=== PATIENT | male | born 1960 | race Hispanic/Latino ===

== ENCOUNTER 2018-02-01 21:57 | Inpatient (IN) | payer BC, OTHER, SELFPAY ==
[2018-02-01 22:47] LABS: ALT (SGPT) 32 U/L (8-55); AST (SGOT) 23 U/L (5-34); Albumin 4.1 g/dL (3.5-5.0); Alkaline Phosphatase 84 U/L (40-150); Anion Gap 14 mmol/L (10-20); BUN (Urea Nitrogen) 11 mg/dL (8.4-25.7); Bilirubin, Total 0.8 mg/dL (0.2-1.2); Calc. Creatinine Clearance 0 mL/min (70-130); Carbon Dioxide 22 mmol/L (22-29); Chloride 103 mmol/L (98-107); Estimated GFR-MDRD Greater than 90; Globulin 3.1 g/dL (2.4-3.5); Glucose 134 mg/dL (70-105); Protein, Total 7.2 g/dL (6.0-8.3); Sodium 135 mmol/L (136-145)
[2018-02-01 22:48] LABS: Bilirubin Negative (Negative); Blood, Urine Negative (Negative); Clarity CLEAR (Clear); Glucose, Urine (Dipstick) Negative (Negative); Leukocyte Negative (Negative); Nitrite Negative (Negative); Protein, Urine (Dipstick) Negative (Neg-Trace); Specific Gravity, Urine 1.011 (1.002-1.036); Urobilinogen 0.2 mg/dL (0.2-1.0); pH, Urine 6.5 (5.0-9.0)
[2018-02-01] MEDS ORDERED: Ketorolac Tromethamine 30 MG/ML VIAL ONE (22:52)
[2018-02-01] MEDS ORDERED: Piperacillin/Tazobactam 4.5 GM VIAL ONE (22:52)
[2018-02-01 22:57] LABS: Hemoglobin 15.4 g/dL (14.0-18.0); Mean Corpuscular HGB CONC 34.6 g/dL (32.0-36.0); Mean Corpuscular Hemoglobin 30.6 pg (27.0-31.0); Mean Corpuscular Volume 88.5 fl (80.0-94.0); Mean Platelet Volume 8.1 fL (7.4-10.4); Platelet Count 193 thou/uL (130-400); RBC Distribution Width 12.4 % (11.5-14.5); Red Blood Cell (RBC) Count 5.03 mill/uL (4.70-6.10); White Blood Cell (WBC) Count 11.7 thou/uL (4.8-10.8)
[2018-02-01 22:58] LABS: Band 8 % (5-11); Lymphocytes 7 % (21-51); MDiff Complete? YES; Monocytes 4 % (0-10); Neutrophil 81 % (42-75); PLT Morphology Comment Appears Adequate; RBC Morphology Normal
--- NOTE | 2018-02-01 23:30 | RAD ---
CHEST ONE VIEW: HISTORY: Diaphoretic patient. Chills. Weakness. COMPARISON: 09/22/2016 FINDINGS: Normal cardiac silhouette. Pulmonary vessels and hilum are normal. Elevation of the left hemidiaphr agm. Blunting of the left costophrenic angle. The right costophrenic angle is clear. Patchy inters titial pattern of the left lung base. No pneumothorax. IMPRESSION: Left lower lobe atelectasis. Superimposed infiltrate cannot be excluded. POS: [facility]
[2018-02-02] MEDS ORDERED: Azithromycin 500 MG VIAL ONE (01:14)
[2018-02-02] MEDS ORDERED: Acetaminophen 325 MG TAB ONE (01:56)
--- NOTE | 2018-02-02 02:10 | PDOC.FPRHP ---
- History of Present Illness Chief Complaint: Weakness History of Present Illness: 57 y/o PMHx of HTN and HLD, not on meds presents to the ED due to weakness, fever, and chills. He reports that over the past week he has been feeling more weak and fatigued and been urinating less frequently. He works in [employer] for his job. However, today he got much worse and developed F/C and nausea. He also reports a dry cough that started suddenly today. He has associated body aches. He reports some RABAGO since all of this started. He checked his temperature, but does not remember what it was. ED Course: The patient was given Tylenol 650mg, Azithromycin 500mg, Toradol 30mg, Zosyn 4.5g, NS 30ml/kg bolus - Allergies/Adverse Reactions Allergies Allergy/AdvReac Type Severity Reaction Status Date / Time No Known Drug Allergies Allergy Verified 02/02/18 04:00 - Home Medications Medication Instructions Recorded Confirmed Type diphenhydrAMINE [Benadryl] 50 mg PO ASDIR PRN 02/02/18 02/02/18 History - History PMHx: 1. HTN 2. HLD PSHx: R knee sx FHx: Mom - DM2, Dad - prostate cancer Social: Drinks 2-3 beers daily, last drink was 02/01. Denies tobacco or drug use. PCP: none - Review of Systems General: reports: fever/chills, fatigue Eyes: denies: eye pain, vision changes ENT: denies: nasal congestion, rhinorrhea Respiratory: reports: cough (dry), shortness of breath Cardiovascular: denies: chest pain, palpitation, edema Gastrointestinal: reports: nausea. denies: vomiting, diarrhea, constipation, abdominal pain Genitourinary: denies: incontinence, dysuria, polyuria Skin: denies: rashes, lesions Musculoskeletal: reports: pain (generalized muscle aches). denies: tenderness Neurological: reports: numbness, syncope Psychological: reports: anxiety, depression - Vital signs BP: 121/70 HR: 102 RR: 22 Tmax: 100.3 Pox: 94% on RA Wt: 80kg - Physical Exam Constitutional: NAD (diaphoretic), awake, alert and oriented, well developed HEENT: normocephalic and atraumatic, PERRLA, EOMI, conjunctiva clear, no scleral icterus, normal nasal mucosa, MMM, oropharynx clear Neck: supple, no LAD Heart: RRR, normal S1/S2, no murmurs/rubs/gallops, pulses present, no edema -Lungs: Good respiratory effort, rhonchi in left lung base, no wheezes Abdomen: soft, non-tender, bowel sounds present, no masses/distention Musculoskeletal: normal structure, normal tone Neurological: no focal deficit, CN II-XII intact, normal sensation Skin: no rash/lesions, good turgor, capillary refill <2 seconds Heme/Lymphatic: no unusual bruising or bleeding, no purpura Psychiatric: normal mood and affect, good judgment and insight, intact recent and remote memory FMR H&P: Results - Labs Result Diagrams: 02/01/18 22:09 02/01/18 22:09 Lab results: WBC 11.7 thou/uL (4.8-10.8) H 02/01/18 22:09 Hgb 15.4 g/dL (14.0-18.0) 02/01/18 22:09 Hct 44.5 % (42.0-52.0) 02/01/18 22:09 MCV 88.5 fl (80.0-94.0) 02/01/18 22:09 Plt Count 193 thou/uL (130-400) 02/01/18 22:09 Band Neuts % (Manual) 8 % (5-11) 02/01/18 22:09 Sodium 135 mmol/L (136-145) L 02/01/18 22:09 Potassium 4.0 mmol/L (3.5-5.1) 02/01/18 22:09 Chloride 103 mmol/L (98-107) 02/01/18 22:09 Carbon Dioxide 22 mmol/L (22-29) 02/01/18 22:09 BUN 11 mg/dL (8.4-25.7) 02/01/18 22:09 Creatinine 0.82 mg/dL (0.6-1.3) 02/01/18 22:09 Glucose 134 mg/dL (70-105) H 02/01/18 22:09 Lactic Acid 3.1 mmol/L (0.5-2.2) H 02/01/18 22:09 Calcium 9.0 mg/dL (7.8-10.44) 02/01/18 22:09 Total Bilirubin 0.8 mg/dL (0.2-1.2) 02/01/18 22:09 AST 23 U/L (5-34) 02/01/18 22:09 ALT 32 U/L (8-55) 02/01/18 22:09 Alkaline Phosphatase 84 U/L (40-150) 02/01/18 22:09 Serum Total Protein 7.2 g/dL (6.0-8.3) 02/01/18 22:09 Albumin 4.1 g/dL (3.5-5.0) 02/01/18 22:09 Urine Ketones Negative mg/dL (Negative) 02/01/18 22:43 Urine Blood Negative (Negative) 02/01/18 22:43 Urine Nitrite Negative (Negative) 02/01/18 22:43 Ur Leukocyte Esterase Negative (Negative) 02/01/18 22:43 - Radiology Interpretation Chest x-ray Status: image reviewed by me, report reviewed by me Additional comment: LLL atelectasis, infiltrate cannot be excluded FMR H&P: A/P - Problem List (1) Sepsis Current Visit: Yes Status: Acute Code(s): A41.9 - SEPSIS, UNSPECIFIED ORGANISM Qualifiers: Sepsis type: sepsis due to unspecified organism Qualified Code(s): A41.9 - Sepsis, unspecified organism (2) CAP (community acquired pneumonia) Current Visit: Yes Status: Acute Code(s): J18.9 - PNEUMONIA, UNSPECIFIED ORGANISM Qualifiers: Laterality: left Lung location: lower lobe of lung Qualified Code(s): J18.1 - Lobar pneumonia, unspecified organism (3) Lactic acidosis Current Visit: Yes Status: Acute Code(s): E87.2 - ACIDOSIS (4) HLD (hyperlipidemia) Current Visit: Yes Status: Acute Code(s): E78.5 - HYPERLIPIDEMIA, UNSPECIFIED Qualifiers: Hyperlipidemia type: unspecified Qualified Code(s): E78.5 - Hyperlipidemia , unspecified (5) HTN (hypertension) Current Visit: Yes Status: Acute Code(s): I10 - ESSENTIAL (PRIMARY) HYPERTENSION Qualifiers: Hypertension type: essential hypertension Qualified Code(s): I10 - Essential (primary) hypertension - Plan Sepsis 2/2 CAP Patient initially tachycardic, tachypneic, with CXR concerning for possible LLL infiltrate. The patient also has Lactic acid of 3.1. WBC count was 11.7 with 8% bands. He is s/p 30mL/kg bolus in the ED along with Zosyn and Azithromycin. -Admit to medical -Rocephin, Azithromycin -NS @ 120 -Trend Lactic acid -Blood cultures Community Acquired Pneumonia -Rocephin, Azithromycin -NS @ 120 -Procalcitonin -Urine legionella and strep pneumo antigens Lactic Acidosis Initial lactate was 3.1 -Trend and monitor -NS @ 120, s/p fluid bolus in ED HTN Pt has diagnosis of HTN, but is not currently on medication -Will monitor BP and start med if needed HLD Pt has dx of HLD, but not currently on medication. -Will check FLP and start med if needed EtOH abuse Pt with h/o drinking 2-3 beers/day. Last drink was yesterday. Denies having withdrawal symptoms if he doesn't drink anything. -ASE protocol, monitor for signs of withdrawal VTE ppx: Lovenox Code Status: Full Disposition/LOS: Admit to medical, length of stay likely 2 days FMR H&P: Upper Level - Pertinent history 57 yo M with PMH significant for HLD presents with 1-2 days of worsening fatigue. 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 Notes that his urine output has decreased, and that he has not had to wake up to urinate the past couple of nights. No fevers at home, no known sick contacts, has had some mildly productive cough recently. No CP or SOB. - Pertinent findings PE: T: P: BP: RR: % Gen: [place] male in NAD HEENT: PERRL, EOMI, MMM, no lymphadenopathy or thyromegaly CV: RRR no murmurs, distal pulses intact Pulm: mild rhonchi in LLL, right field clear to ascultation Abd: soft, NT/ND, BS present, no masses or distention Ext: no cyanosis or edema MSK: ROMAN well, no joint or muscle pain or swelling Neuro: CN 2-12 intact, normal sensation Skin: no rashes or lesions Psych: A&O x3, appropriate in conversation - Plan Date/Time: 02/02/18 0209 57 yo M here with fatigue. 1) Sepsis 2/2 CAP: Admit to medical, continue rocephin and azithromycin for coverage. Blood cultures pending at this time. Afebrile, VSS. Will continue to fluid resuscitate. Trend lactate and WBC counts until normal. Check procal. 2) HLD: Check FLP I, [Kimo Carroll], have evaluated this patient and agree with findings/plan as outlined by education intern resident. Pertinent changes/additions are listed here. Attending Addendum - Attending Addendum Date/Time: 02/02/18 1120 I personally evaluated the patient and discussed the management with Dr. Rosas I agree with the History, Examination, Assessment and Plan documented above with any addition or exceptions noted below. The patient presents with a history of fever, chills, body aches and generalized weakness. He was noted to have elevate lactic acid. This morning he complains of headache and congestion. He is on rocephin and azithromycin for sepsis 2/2 CAP. Will repeat a chest xr to see if there is a definitive pneumonia. Lactic acid has trended down. Will check respiratory viral panel. Pt is also mildly hypoxic with O2 sat at 89% during our visit.
[2018-02-02] MEDS ORDERED: Ondansetron HCl/PF 4 MG/2 ML Vial IVP PRN (03:36)
[2018-02-02] MEDS ORDERED: Ondansetron ODT 4 MG TAB PO PRN (03:36)
[2018-02-02] MEDS: Sodium Chloride 0.9% 1,000 ML IV SCH ×3 (03:42→20:15)
[2018-02-02 03:56] VITALS: BMI 28.2
[2018-02-02] MEDS ORDERED: Ibuprofen 800 MG TAB PO SCH (04:15)
[2018-02-02] MEDS: cefTRIAXone\\ROCEPHIN 2 GM in Sodium Chloride 0.9% 100 ML IVPB SCH (05:34)
[2018-02-02 05:43] LABS: Legionella Urinary Ag Negative (Negative); Strep pneumo Urine Ag NEGATIVE (NEGATIVE)
[2018-02-02] MEDS: Enoxaparin Sodium 40 MG/0.4 ML SYRINGE SC SCH (08:12)
[2018-02-02] MEDS: Acetaminophen 325 MG TAB PO PRN ×2 (08:13→19:07)
--- NOTE | 2018-02-02 11:32 | RAD ---
PORTABLE CHEST: HISTORY: Followup of left lower lobe infiltrate. COMPARISON: Prior day's study. FINDINGS: Heart size and mediastinum are within normal limits. The parenchymal changes in the left base appear improved as compared to that prior examination. IMPRESSION: Resolution of the left lower lobe parenchymal change. No definite infiltrate seen on this portable f ilm. POS: [facility]
[2018-02-02] MEDS: guaiFENesin ER 600 MG TAB PO SCH (20:14)
[2018-02-02] MEDS ORDERED: Azithromycin 250 MG TAB PO SCH (21:00)
[2018-02-03 05:03] LABS: #Eosinphils 0.3 thou/uL (0.0-0.7); #Lymphocytes 1.6 thou/uL (1.20-3.40); #Monocytes 0.5 thou/uL (0.11-0.59); #Neutrophils 4.6 thou/uL (1.40-6.50); %Basophils 0.2 % (0.0-1.0); %Eosinophils 3.7 % (0.0-10.0); %Lymphocytes 23.2 % (21.0-51.0); %Monocytes 7.6 % (0.0-10.0); %Neutrophils 65.3 % (42.0-75.0); Hemoglobin 14.5 g/dL (14.0-18.0); Mean Corpuscular HGB CONC 34.6 g/dL (32.0-36.0); Mean Corpuscular Hemoglobin 30.9 pg (27.0-31.0); Mean Corpuscular Volume 89.2 fl (80.0-94.0); Mean Platelet Volume 8.2 fL (7.4-10.4); Platelet Count 171 thou/uL (130-400); RBC Distribution Width 12.3 % (11.5-14.5)
[2018-02-03] MEDS: cefTRIAXone\\ROCEPHIN 2 GM in Sodium Chloride 0.9% 100 ML IVPB SCH (05:12)
[2018-02-03] MEDS: Sodium Chloride 0.9% 1,000 ML IV SCH (05:13)
[2018-02-03 05:29] LABS: Anion Gap 12 mmol/L (10-20); BUN (Urea Nitrogen) 7 mg/dL (8.4-25.7); Calc. Creatinine Clearance 134 mL/min (70-130); Calcium 8.8 mg/dL (7.8-10.44); Carbon Dioxide 22 mmol/L (22-29); Chloride 110 mmol/L (98-107); Cholesterol 189 mg/dl (< 200 Desired); Estimated GFR-MDRD Greater than 90; Glucose 95 mg/dL (70-105); HDL Cholesterol 47 mg/dL (>60 Neg Risk); LDL Cholesterol, Calculated 121 mg/dL; Potassium 4.1 mmol/L (3.5-5.1); Sodium 140 mmol/L (136-145); Triglycerides 103 mg/dL (Less than 150)
[2018-02-03] MEDS: guaiFENesin ER 600 MG TAB PO SCH (08:52)
[2018-02-03] MEDS: Enoxaparin Sodium 40 MG/0.4 ML SYRINGE SC SCH (08:53)
--- NOTE | 2018-02-03 09:21 | PDOC.FM ---
- Subjective Subjective: Patient is reporting much improvement in breathing and congestion today. He ate his breakfast well. He has been up and walking. He reports he is urinating at least 1x per hour now. His cough and fever have resolved. NAEO. - Objective MAR Reviewed: Yes Vital Signs & Weight: Vital Signs (12 hours) Temp Pulse Resp BP Pulse Ox 02/03/18 07:32 98.3 F 83 18 135/78 95 Weight Weight 79.379 kg I&O: 02/02/18 02/03/18 02/04/18 06:59 06:59 06:59 Intake Total 529 2160 Balance 529 2160 Result Diagrams: 02/03/18 04:23 02/03/18 04:23 <Tiffanie Paris - Last Filed: 02/03/18 12:02> - Objective Vital Signs & Weight: Vital Signs (12 hours) Temp Pulse Resp BP BP Pulse Ox 02/03/18 12:00 159/87 H 02/03/18 11:22 98.4 F 82 20 159/87 H 97 Weight Weight 79.379 kg I&O: 02/02/18 02/03/18 02/04/18 06:59 06:59 06:59 Intake Total 529 2160 480 Balance 529 2160 480 Result Diagrams: 02/03/18 04:23 02/03/18 04:23 <Carol Rogers - Last Filed: 02/03/18 20:44> Phys Exam - Physical Examination Constitutional: NAD HEENT: PERRLA, moist MMs, sclera anicteric erythema of oropharynx, no tonsilar exudates, +cobblestoning No ttp of sinuses Respiratory: no wheezing, no rales, clear to auscultation bilateral Cardiovascular: RRR, no significant murmur Gastrointestinal: soft, non-tender Musculoskeletal: pulses present Neurological: moves all 4 limbs Psychiatric: normal affect, A&O x 3 <Tiffanie Paris - Last Filed: 02/03/18 12:02> Dx/Plan (1) Dehydration, moderate Code(s): E86.0 - DEHYDRATION Status: Resolved (2) HLD (hyperlipidemia) Code(s): E78.5 - HYPERLIPIDEMIA, UNSPECIFIED Status: Chronic QualifierTitle: Hyperlipidemia type: unspecified Qualified Code(s): E78.5 - Hyperlipidemia, unspecified (3) HTN (hypertension) Code(s): I10 - ESSENTIAL (PRIMARY) HYPERTENSION Status: Chronic QualifierTitle: Hypertension type: essential hypertension Qualified Code( s): I10 - Essential (primary) hypertension (4) Lactic acidosis Code(s): E87.2 - ACIDOSIS Status: Resolved (5) Sepsis Code(s): A41.9 - SEPSIS, UNSPECIFIED ORGANISM Status: Resolved QualifierTitle: Sepsis type: sepsis due to unspecified organism Qualified Code(s): A41.9 - Sepsis, unspecified organism (6) CAP (community acquired pneumonia) Code(s): J18.9 - PNEUMONIA, UNSPECIFIED ORGANISM Status: Ruled-out QualifierTitle: Laterality: left Lung location: lower lobe of lung Qualified Code(s): J18.1 - Lobar pneumonia, unspecified organism - Plan Plan: Possible CAP: - not fully convinced as infiltrate dissapeared with IVF and sx resolved overnight - patient has received Rocephin and Azithromycin [id number] - respiratory viral panel negative - procalcitonin wnl suggesting viral etiology - will d/c home today without abx and close f/u Moderate Dehydration: - likely a large contributor to all his symptoms, LA corrected with IVF, tachycardia resolved, infiltrate disappeared. - s/p NS at 120 for 24hrs, UOP much improved, d/c IVF today - CK wnl HTN - not currently on meds - BP slightly elevated this am but overnight wnl, f/u outpatient for possible need for medication vs treatment with diet/exercise. HLD - not on meds - FLP wnl - f/u outpatient Sepsis, resolved - see above Lactic Acidosis, resolved - see above <Tiffanie Paris - Last Filed: 02/03/18 12:02> (1) Sepsis Code(s): A41.9 - SEPSIS, UNSPECIFIED ORGANISM Status: Resolved Qualifiers: Sepsis type: sepsis due to unspecified organism Qualified Code(s): A41.9 - Sepsis, unspecified organism (2) CAP (community acquired pneumonia) Code(s): J18.9 - PNEUMONIA, UNSPECIFIED ORGANISM Status: Ruled-out Qualifiers: Laterality: left Lung location: lower lobe of lung Qualified Code(s): J18.1 - Lobar pneumonia, unspecified organism (3) Lactic acidosis Code(s): E87.2 - ACIDOSIS Status: Resolved (4) HLD (hyperlipidemia) Code(s): E78.5 - HYPERLIPIDEMIA, UNSPECIFIED Status: Chronic Qualifiers: Hyperlipidemia type: unspecified Qualified Code(s): E78.5 - Hyperlipidemia , unspecified (5) HTN (hypertension) Code(s): I10 - ESSENTIAL (PRIMARY) HYPERTENSION Status: Chronic Qualifiers: Hypertension type: essential hypertension Qualified Code(s): I10 - Essential (primary) hypertension <Carol Rogers - Last Filed: 02/03/18 20:44> Attending Addendum - Attending Addendum Date/Time: 02/03/182042 I personally evaluated the patient and discussed the management with Dr. Paris. I agree with the History, Examination, Assessment and Plan documented above with any addition or exceptions noted below. The patient's breathing is back to baseline. WBC count normal. Repeat CXR negative for pneumonia. Viral respiratory panel negative. Pt's symptoms on admission likely 2/2 dehydration. There are no signs of infection and patient will not be sent home with antibiotics. <Carol Rogers - Last Filed: 02/03/18 20:44>
[2018-02-03 11:23] VITALS: BP 159/87; TEMP 98.4
== END 2018-02-03 13:22 | disposition home or self-care (01) | DRG 871 ==
LOC: ERS 21:57 → T4-B 02-02 02:35
PROVIDERS: ADMIT Student in an Organized Health Care Education/Training Program; ATTEND Student in an Organized Health Care Education/Training Program
DX: A41.9 Sepsis, unspecified organism (principal); J18.9 Pneumonia, unspecified organism; E87.2 Acidosis; E86.0 Dehydration; E78.5 Hyperlipidemia, unspecified; I10 Essential (primary) hypertension
CPT/HCPCS: 36415; 71045; 80048; 80053; 80061; 81003; 82550; 83605; 84145; 85025; 87040; 87086; 87633; 87804; 87899; 93005; 94760; 96361; 96365; 96367; 96374; A4216; J0456; J0696; J1650; J1885; J2543; J7050

== ENCOUNTER 2018-06-26 12:54 | Emergency (ER) | payer OTHER ==
--- NOTE | 2018-06-26 13:26 | RAD ---
RIGHT ELBOW RADIOGRAPHS 4 VIEWS: Date: 06/26/18 PROVIDED CLINICAL HISTORY: Right arm pain status post injury. FINDINGS: There is no evidence for fracture or other acute osseous abnormality. If there is persistent clinical concern, conservative management and follow-up imaging are advised. IMPRESSION: As above. POS: [facility]
--- NOTE | 2018-06-26 13:27 | RAD ---
RIGHT WRIST RADIOGRAPHS 3 VIEWS: Date: 06/26/18 PROVIDED CLINICAL HISTORY: Pain status post injury. FINDINGS: Foci of linear radiolucency are seen involving the scaphoid waist and distal scaphoid pole suggesting nondisplaced fracture. No additional fracture is evident. Alignment appears anatomic. Joint spaces a ppear preserved. IMPRESSION: Possible nondisplaced fracture involving distal scaphoid. POS: [facility]
[2018-06-26] MEDS ORDERED: HYDROcodone/Acetaminophen 10/325 mg Tablet ONE (13:39)
== END 2018-06-26 14:31 | disposition home or self-care (01) ==
LOC: ERS 12:54
DX: S50.01XA Contusion of right elbow, initial encounter (principal); S60.211A Contusion of right wrist, initial encounter; E78.5 Hyperlipidemia, unspecified; I10 Essential (primary) hypertension; Z87.891 Personal history of nicotine dependence; W18.30XA Fall on same level, unspecified, initial encounter
CPT/HCPCS: 29125

== ENCOUNTER 2018-07-26 07:44 | Outpatient (CLI) | payer OTHER ==
--- NOTE | 2018-07-26 11:41 | MRI ---
MRI OF RIGHT ELBOW PERFORMED WITHOUT CONTRAST ENHANCEMENT: History: Patient fell and has right elbow pain. FINDINGS: The ulnar collateral ligament shows a lower grade undersurface tear at the level of the supine tuberc al. The lateral collateral ligament is intact. There are tendinopathy changes of the common extensor tendon origin and what could represent a low gr sirena partial tear. The common flexor tendon origin appears unremarkable. Triceps tendon is normal in appearance. There is what appears to be an acute on chronic tear of the biceps tendon. There is ossification at t he level of the expected insertion of the biceps tendon on the radial tuberosity. There is edema valverde ge in fluid. The stump of the tendon is retracted by approximately 2.5 cm. The visualized portion of the biceps tendon appears very atrophic. I suspect that this represents a chronic biceps tendon tear and that there has been a tear of the residual scar or what may have been a residual remnant of the t endon that is still attached to the radial tuberosity. I suspect that the retracted portion has been chronically retracted. The lacertus fibrosis appears intact. IMPRESSION: 1. Findings that suggest an acute on chronic tear of the biceps tendon. There is ossification at the radial tuberosity at the expected insertion of the biceps tendon. The tendon is retracted by approxim ately 2.3 cm. I suspicious that this is a chronically retracted tendon. There are edema changes assoc iated with the distal end of the tendon. There is some minimal linear density which extends to the ra dial tuberosity which could represent a tiny remnant of the tendon or more likely scar tissue from a chronically torn tendon. The visualized portion of the biceps muscle appears to be moderately atrophi c. The lacertus fibrosis appears intact. 2. Low grade undersurface tear of the ulnar collateral ligament at the level of the subline tubercal. 3. Tendinopathy changes of the common extensor tendon origin with a low grade partial tear. POS: [facility]
== END 2018-07-26 07:45 | disposition home or self-care (01) ==
LOC: TBSIIMAG 07:44
PROVIDERS: ATTEND Orthopaedic Surgery
DX: M25.521 Pain in right elbow (principal); S53.441A Ulnar collateral ligament sprain of right elbow, initial encounter; S56.511A Strain of other extensor muscle, fascia and tendon at forearm level, right arm, initial encounter; R93.7 Abnormal findings on diagnostic imaging of other parts of musculoskeletal system

== ENCOUNTER 2018-08-06 09:43 | Outpatient (CLI) | payer OTHER ==
[2018-08-06 11:15] LABS: Hemoglobin 15.7 g/dL (14.0-18.0); Mean Corpuscular HGB CONC 34.5 g/dL (32.0-36.0); Mean Corpuscular Hemoglobin 30.4 pg (27.0-31.0); Platelet Count 234 thou/uL (130-400); RBC Distribution Width 12.3 % (11.5-14.5); Red Blood Cell (RBC) Count 5.15 mill/uL (4.70-6.10); White Blood Cell (WBC) Count 8.9 thou/uL (4.8-10.8)
--- NOTE | 2018-08-06 19:05 | EKG ---
Test Reason : Blood Pressure : / mmHG Vent. Rate : 074 BPM Atrial Rate : 074 BPM P-R Int : 150 ms QRS Dur : 090 ms QT Int : 372 ms P-R-T Axes : 050 028 038 degrees QTc Int : 412 ms Normal sinus rhythm Inc. RBBB Can not rule out Anterior infarct , age undetermined Abnormal ECG When compared with ECG of 06-AUG-2018 10:13, (Unconfirmed) Right bundle branch block is no longer Present Possible Anterior infarct is now Present Confirmed by Lul JACOBS ([id number]) on 08/06/2018 7:05:14 PM Referred By: ELZA Confirmed By:Lul JACOBS
== END 2018-08-06 09:44 | disposition home or self-care (01) ==
LOC: LABBT 09:43
PROVIDERS: ATTEND Orthopaedic Surgery
DX: Z01.818 Encounter for other preprocedural examination (principal)
CPT/HCPCS: 85027; 93005; 93010

== ENCOUNTER 2018-08-10 06:55 | Day surgery (SDC) | payer OTHER ==
[2018-08-06 09:56] VITALS: BMI 30.7
[2018-08-10] MEDS ORDERED: Fentanyl 100 MCG/2 ML VIAL ONE (07:29)
[2018-08-10] MEDS ORDERED: Midazolam HCl 2 mg/2 ml Vial ONE (07:29)
[2018-08-10] MEDS ORDERED: CEFAZOLIN 2 GM/50 ML BAG ONE (10:07)
[2018-08-10] MEDS ORDERED: Zolpidem Tartrate 5 MG TAB PO PRN (10:58)
[2018-08-10] MEDS ORDERED: Ropivacaine 0.2% 550 ML 550 ML NERVE BLCK SCH (10:58)
[2018-08-10] MEDS ORDERED: traMADol HCl 50 MG TAB PO PRN ×2 (10:58)
[2018-08-10] MEDS ORDERED: Ondansetron PF 4 MG/2 ML Vial IVP PRN (10:58)
[2018-08-10] MEDS ORDERED: HYDROcodone/Acetaminophen 10/325 mg Tablet PO PRN ×2 (10:58)
[2018-08-10] MEDS ORDERED: Promethazine HCl 25 MG/ML VIAL IM PRN (10:58)
[2018-08-10] MEDS ORDERED: Fentanyl 100 MCG/2 ML VIAL IV PRN (10:59)
[2018-08-10] MEDS ORDERED: Ketorolac Tromethamine 30 MG/ML VIAL IVP SCH (12:00)
--- NOTE | 2018-08-10 12:21 | RAD ---
INTRAOPERATIVE FLUOROSCOPY: Comparison: None. Exposure: 15.6 seconds; 0.60 mGy*cm^2 History: Biceps tendon repair. FINDINGS: Single fluoroscopic view demonstrates a metallic slightly rectangular density projecting over the pro ximal radius. IMPRESSION: Intraoperative fluoroscopy as above. POS: [facility]
[2018-08-10] MEDS ORDERED: Ondansetron PF 4 MG/2 ML Vial ONE (12:32)
[2018-08-10] MEDS ORDERED: Promethazine HCl 25 MG/ML VIAL ONE (12:39)
--- NOTE | 2018-08-10 20:44 | OP ---
DATE OF PROCEDURE: 08/10/2018 PREOPERATIVE DIAGNOSIS: Right distal biceps rupture. POSTOPERATIVE DIAGNOSIS: Right distal biceps rupture. PROCEDURES PERFORMED: Open right distal biceps reconstruction/repair with Arthrex distal biceps repair system. WHEEL AND CASTER REPAIRER: Alexandr Cartwright PA-C ANESTHESIA: This patient received an LMA with supervised care. ESTIMATED BLOOD LOSS: 25 mL. TOURNIQUET TIME: 56 minutes at 250 mmHg. ANTIBIOTICS: 2 g Ancef. The patient received a TightRope distal biceps Arthrex repair kit. COMPLICATIONS: None. HISTORY OF PRESENT ILLNESS: Mr. Genaro Jensen is a 57-year-old male. He is right-hand dominant. He felt a pop in his arm on the 26. The patient had MRI evidence of a tear of his right distal biceps. I discussed with the patient the risks and benefits of an open repair to include pain, scar, bleeding, infection; damage to vital structures, nerves, arteries, tendons; decreased range of motion or strength, nonunion, malunion of fracture, heterotopic ossification. He understands these risks and benefits and would like to proceed. DESCRIPTION OF PROCEDURE: Time-out was performed designating the patient's right upper extremity as the operative site, based on site, consent, and markings. After time-out, the patient's right upper extremity was prepped and draped in sterile fashion. Tourniquet was left up for 56 minutes. We dissected down, came down through the skin, came down onto the patient's biceps. We dissected under the leash of yue vessels. We did not take any of the neurovascular structures. We came down, found the sheath, opened up the biceps, tracked it down to the bicipital tuberosity to make a second window in between the patient's pronator teres and the brachioradialis. We came down onto where the stump remnant was and used cautery on bone, exposed our remnant stump. We then moved back to our tendon and used our fiber loop to pass running stitches to the distal end. We sized it to a 7. We then drilled hole for our 7 mm drill as we placed our guide pin under fluoroscopic guidance. We had sized graft to 7 mm. After completion of this, we then drilled and opened our cortex, passed our TightRope, pulled it in a position, centered it down. We then moved after positioning our TightRope in position. We then stitched down, passed our suture back up to our tendon, sewed it down, cut, stitched, washed. The patient was able to extend about 20 degrees. It was tied at about 20 to 30 degrees. The patient was then placed in a soft bulky dressing. The patient will follow up with me in about 10 to 14 days and began elbow range of motion as tolerated in a sling. The patient will be given hydrocodone for pain relief. Job ID: [id number] [facility]
== END 2018-08-10 16:20 | disposition home or self-care (01) ==
LOC: SDC 06:55
PROVIDERS: ATTEND Orthopaedic Surgery
PROC: 0KQ70ZZ Repair Right Upper Arm Muscle, Open Approach (ICD-10-PCS; principal; 2018-08-10)
DX: S46.211A Strain of muscle, fascia and tendon of other parts of biceps, right arm, initial encounter (principal); W19.XXXA Unspecified fall, initial encounter
CPT/HCPCS: 76000; 96374; A4306; C1713; J2250; J2405; J2550; J2795; J3010

== ENCOUNTER 2018-12-15 14:56 | Observation (INO) | payer OTHER, SELFPAY ==
[2018-12-15 16:31] LABS: Troponin I 0.016 ng/mL (< 0.028)
--- NOTE | 2018-12-15 16:53 | PDOC.EVN ---
Event Note - Event Note Event Note: Seen and and examined. 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 He improved on steroids from PCP but has since worsened since finishing. He has chest pain only with respiration and his shortness of breath is worse with exertion and better with rest. No nausea/diaphoresis. He admits that he is quite anxious and his "whole body palomares." He has some orthopnea. He has no pain currently. He has been coughing extensively but no syncope or posttussive emesis. On exam he is in NAD, is tachycardic with a 3/6 ILENE that radiates through most of the precordium. He is mildly tachypneic with bibasilar rales and expiratory wheezes. No JVD or edema. Labs and imaging reviewed. ECG with sinus tach, ~RBBB without MYKEL/D or sig TW changes. No IL depression. Acute resp failure 2/2 presumed COPD vs asthma -steroids, nebs, azithro in light of recent sputum production and color change New murmur -TTE Chest pain -I strongly suspect 2/2 above. If he does not rapidly improve, would consider stress echo in light of relative c/i of other modalities (active lung dz and knee arthritis with ~RBBB on ECG)
[2018-12-15] MEDS ORDERED: Acetaminophen 325 MG TAB PO PRN (17:27)
[2018-12-15] MEDS ORDERED: Nitroglycerin 0.4 MG TAB (25 Tab Bottle) PO PRN (17:27)
[2018-12-15] MEDS ORDERED: Ondansetron PF 4 MG/2 ML Vial IVP PRN (17:27)
[2018-12-15 17:43] VITALS: BMI 33.8
--- NOTE | 2018-12-15 17:46 | PDOC.FPRHP ---
- History of Present Illness Chief Complaint: dyspnea History of Present Illness: Kaiden Jensen is a 58 year old M with PMH of HLD and Arthritis who presents to the ED with a 3 week history of dyspnea, cough, and wheezing. States that his PCP, Dr. Rogers, gave him antibiotics and steroids 2 weeks ago, states that he initially got better but since finishing the course, he has had progressively worsening symptoms. Endorses orthopnea and RABAGO. Denies fever, chills, n/v, abdominal pain. States that he has some chest pain when he coughs. States that he has been exposed to chemicals over the last 30 years because of his job but he has no known his of lung issues. In the ED, he was given steroids and nebs. - Allergies/Adverse Reactions Allergies Allergy/AdvReac Type Severity Reaction Status Date / Time No Known Drug Allergies Allergy Verified 12/15/18 17:48 - Home Medications Medication Instructions Recorded Confirmed Type Atorvastatin Calcium [Lipitor] 20 mg PO HS 08/06/18 12/15/18 History Naproxen 500 mg PO BID PRN 08/06/18 12/15/18 History Tamsulosin HCl [Flomax] 0.4 mg PO HS 08/06/18 12/15/18 History hydrOXYzine HCl [Hydroxyzine HCl] 25 mg PO PRN PRN 08/06/18 12/15/18 History Benzonatate [Tessalon] 100 mg PO TID PRN 12/15/18 12/15/18 History Cyclobenzaprine [Flexeril] 10 mg PO TID PRN 12/15/18 12/15/18 History Gabapentin 300 mg PO TID 12/15/18 12/15/18 History Nortriptyline HCl [Pamelor] 25 mg PO DAILY 12/15/18 12/15/18 History - History PMHx: HDL, Athritis PSHx: right elbow surgery, right knee surgery FHx: noncontributory Social: states that he hasn't had any alcohol over the last 5 months, prior to that he was having 2 beers a day, denies drug use or smoking. - Review of Systems General: denies: fever/chills, weight/appetite/sleep changes, night sweats, fatigue Eyes: denies: eye pain, vision changes ENT: denies: nasal congestion, rhinorrhea Respiratory: reports: cough, shortness of breath, exercise intolerance. denies : congestion Cardiovascular: reports: chest pain, edema, orthopnea. denies: palpitation, paroxysmal nocturnal dyspnea Gastrointestinal: denies: nausea, vomiting, diarrhea, constipation, abdominal pain Genitourinary: denies: incontinence, dysuria, discharge Skin: denies: rashes, lesions Musculoskeletal: reports: pain, arthritis/arthralgias. denies: tenderness, stiffness Neurological: denies: numbness, syncope, seizure Psychological: denies: anxiety, depression - Vital signs BP: 151/71 HR: 108 RR: 20 Tmax: 98.2 Pox: 96% on RA Wt: 88kg - Physical Exam Constitutional: NAD, awake, alert and oriented, well developed HEENT: normocephalic and atraumatic, PERRLA, EOMI, conjunctiva clear Neck: supple, FROM, no LAD, no JVD Chest: no-tender to palpation, no lesions Heart: normal S1/S2 -Heart: tachycardic, 3/6 systolic murmur heart best left 5th intercostal space, midclavicular Lungs: CTAB, no respiratory distress, good air movement, no rales/rhonchi -Lungs: expiratory wheezes heard b/l Abdomen: soft, non-tender, bowel sounds present, no masses/distention Musculoskeletal: normal structure, normal tone, ROM grossly normal Neurological: no focal deficit, CN II-XII intact Skin: no rash/lesions, good turgor, capillary refill <2 seconds Heme/Lymphatic: no unusual bruising or bleeding, no purpura, no petechia Psychiatric: normal mood and affect, good judgment and insight, intact recent and remote memory FMR H&P: Results - Labs Result Diagrams: 12/16/18 04:34 12/16/18 04:34 - EKG Interpretation EKG: Sinus Tachycardia, poss left atrial enlargement - Radiology Interpretation Chest x-ray Status: image reviewed by me, report reviewed by me Additional comment: borderline pulm vascular congestion CT scan - chest Status: image reviewed by me, report reviewed by me Additional comment: negative for VTE FMR H&P: A/P - Problem List (1) COPD exacerbation Current Visit: Yes Status: Acute Code(s): J44.1 - CHRONIC OBSTRUCTIVE PULMONARY DISEASE W (ACUTE) EXACERBATION (2) Arthritis Current Visit: Yes Status: Chronic Code(s): M19.90 - UNSPECIFIED OSTEOARTHRITIS, UNSPECIFIED SITE (3) HLD (hyperlipidemia) Current Visit: No Status: Chronic Code(s): E78.5 - HYPERLIPIDEMIA, UNSPECIFIED Qualifiers: Hyperlipidemia type: unspecified Qualified Code(s): E78.5 - Hyperlipidemia , unspecified (4) HTN (hypertension) Current Visit: No Status: Chronic Code(s): I10 - ESSENTIAL (PRIMARY) HYPERTENSION Qualifiers: Hypertension type: essential hypertension Qualified Code(s): I10 - Essential (primary) hypertension - Plan 1) Presumed COPD Exacerbation - no known history of pulmonary disease - Reactive airway disease vs COPD vs CHF - CXR showed pulmonary vascular congestion, BNP < 10 - Wheezes on exam, hx of improvement with steroids - Continue steroids, duonebs. Start azithromycin - Check Echo for new murmur - Trend trops - Consider stress test if no improvement in symptoms - observation/tele 2) New systolic murmur - checking Echo 3) HTN - Home meds 4) HLD - Home meds 5) Arthritis - tylenol CODE STATUS: FULL CODE Dispo: Anticipate hospital stay < 2 midnights. FMR H&P: Upper Level - Plan Date/Time: 12/15/18 5112 I, [], have evaluated this patient and agree with findings/plan as outlined by internet architect resident. Pertinent changes/additions are listed here. Addendum - Attending - Attending Attestation Date/Time: 12/16/18 1013 I personally evaluated the patient and discussed the management with Dr. Pedersen. I agree with and repeated the History, Examination, Assessment and Plan documented above with any addition or exceptions noted below.
[2018-12-15] MEDS ORDERED: Azithromycin 500 MG in Sodium Chloride 0.9% 250 ML 250 ML IVPB SCH (18:00)
[2018-12-15] MEDS ORDERED: hydrOXYzine 25 MG TAB PO PRN (18:01)
[2018-12-15] MEDS: methylPREDNISolone Sod Succ 40 MG VIAL IVP SCH ×2 (18:26→23:02)
[2018-12-15 19:25] LABS: Troponin I 0.016 ng/mL (< 0.028)
[2018-12-15] MEDS: Gabapentin 300 MG CAP PO SCH (20:55)
[2018-12-15] MEDS ORDERED: Atorvastatin Calcium 20 MG TAB PO SCH (21:00)
[2018-12-15] MEDS ORDERED: Cyclobenzaprine 10 MG TAB PO PRN (23:47)
[2018-12-16 05:07] LABS: #Lymphocytes 0.9 thou/uL (1.20-3.40); #Monocytes 0.2 thou/uL (0.11-0.59); #Neutrophils 9.2 thou/uL (1.40-6.50); %Basophils 0.2 % (0.0-1.0); %Eosinophils 0.3 % (0.0-10.0); %Monocytes 1.8 % (0.0-10.0); %Neutrophils 88.7 % (42.0-75.0); Hemoglobin 14.9 g/dL (14.0-18.0); Mean Corpuscular HGB CONC 33.8 g/dL (32.0-36.0); Mean Corpuscular Hemoglobin 30.1 pg (27.0-31.0); Mean Corpuscular Volume 89.1 fL (78.0-98.0); Mean Platelet Volume 8.5 fL (7.4-10.4); Platelet Count 203 thou/uL (130-400); RBC Distribution Width 13.1 % (11.5-14.5); Red Blood Cell (RBC) Count 4.95 mill/uL (4.70-6.10); White Blood Cell (WBC) Count 10.4 thou/uL (4.8-10.8)
[2018-12-16 05:17] LABS: Anion Gap 13 mmol/L (10-20); BUN (Urea Nitrogen) 13 mg/dL (8.4-25.7); Calc. Creatinine Clearance 142 mL/min (70-130); Calcium 8.9 mg/dL (7.8-10.44); Carbon Dioxide 21 mmol/L (22-29); Chloride 107 mmol/L (98-107); Estimated GFR-MDRD Greater than 90; Glucose 143 mg/dL (70-105); Potassium 4.1 mmol/L (3.5-5.1); Sodium 137 mmol/L (136-145)
--- NOTE | 2018-12-16 06:02 | PDOC.FM ---
- Subjective Subjective: Kaiden Jensen seen at bedside this morning. He is doing well, states that his breathing has greatly improved. He denies any current complaints and there were no acute events overnight. He denies fever, chills, chest pain, dyspnea, n /v. - Objective MAR Reviewed: Yes Vital Signs & Weight: Vital Signs (12 hours) Temp Pulse Resp BP BP Pulse Ox 12/16/18 04:29 97.7 F 91 24 H 132/75 92 L 12/15/18 22:41 116 H 137/77 95 12/15/18 21:25 106 H 16 12/15/18 19:32 97.6 F 110 H 24 H 136/78 96 Weight Weight 95.527 kg I&O: 12/14/18 12/15/18 12/16/18 06:59 06:59 06:59 Output Total 900 Balance -900 Result Diagrams: 12/16/18 04:34 12/16/18 04:34 Phys Exam - Physical Examination Constitutional: NAD HEENT: moist MMs, sclera anicteric Neck: supple, full ROM Respiratory: no wheezing, no rales, no rhonchi, clear to auscultation bilateral Cardiovascular: RRR, no significant murmur Gastrointestinal: soft, non-tender, no distention Musculoskeletal: no edema, pulses present Neurological: non-focal, normal sensation, moves all 4 limbs Psychiatric: normal affect, A&O x 3 Skin: no rash Dx/Plan (1) COPD exacerbation Code(s): J44.1 - CHRONIC OBSTRUCTIVE PULMONARY DISEASE W (ACUTE) EXACERBATION Status: Acute (2) Arthritis Code(s): M19.90 - UNSPECIFIED OSTEOARTHRITIS, UNSPECIFIED SITE Status: Chronic (3) HLD (hyperlipidemia) Code(s): E78.5 - HYPERLIPIDEMIA, UNSPECIFIED Status: Chronic Qualifiers: Hyperlipidemia type: unspecified Qualified Code(s): E78.5 - Hyperlipidemia , unspecified (4) HTN (hypertension) Code(s): I10 - ESSENTIAL (PRIMARY) HYPERTENSION Status: Chronic Qualifiers: Hypertension type: essential hypertension Qualified Code(s): I10 - Essential (primary) hypertension - Plan Plan: 1) Presumed COPD Exacerbation - no known history of pulmonary disease - Reactive airway disease vs COPD vs CHF - CXR showed pulmonary vascular congestion, BNP < 10 - Wheezes on exam, hx of improvement with steroids - Continue steroids, duonebs, azithromycin - Check Echo for new murmur, however, murmur improved this morning, likely was flow murmur - Trops neg X3 - may need outpatient follow up with pulm - Likely d/c today after Echo 2) New systolic murmur - checking Echo 3) HTN - Home meds 4) HLD - Home meds 5) Arthritis - tylenol Addendum - Attending - Attending Attestation Date/Time: 12/16/18 6770 I personally evaluated the patient and discussed the management with Dr. Pedersen I agree with the History, Examination, Assessment and Plan documented above with any addition or exceptions noted below. Admitted for respiratory distress. Concern for pulmonary pathology. Multiple chemical and environmental exposures for pulmonary fibrosis. In the past noted to have negative spirometry. Responded well to bronchiodilators and steroids. Minimal tobacco exposure. Ok to d/c today. Needs pulm consult outpatient. Will call radiology to discuss lung parenchyma. Wild
[2018-12-16] MEDS ORDERED: predniSONE 20 MG TAB PO SCH (08:00)
[2018-12-16] MEDS ORDERED: Azithromycin 250 MG TAB PO SCH (09:00)
[2018-12-16] MEDS ORDERED: Aspirin 325 mg Enteric Coated Tablet PO SCH (09:00)
[2018-12-16] MEDS ORDERED: Enoxaparin Sodium 40 MG/0.4 ML SYRINGE SC SCH (09:00)
[2018-12-16] MEDS: Gabapentin 300 MG CAP PO SCH ×2 (09:16→14:49)
[2018-12-16 16:48] VITALS: BP 139/80; TEMP 97.8
--- NOTE | 2018-12-16 23:59 | DIS ---
DATE OF ADMISSION: 12/15/2018 DATE OF DISCHARGE: 12/16/2018 RESIDENT: Eb Pedersen MD CONSULTS: None. PROCEDURES: Echo on 12/16/2018, official read pending. PRIMARY DIAGNOSIS: Chronic obstructive pulmonary disease exacerbation. SECONDARY DIAGNOSES: 1. Hypertension. 2. Hyperlipidemia. 3. Arthritis. DISCHARGE MEDICATIONS: Resume home medications including; 1. Hydroxyzine 25 mg p.o. p.r.n. 2. Flomax 0.4 mg p.o. at bedtime. 3. Lipitor 20 mg p.o. at bedtime. 4. Naproxen 500 mg p.o. b.i.d. 5. Flexeril 10 mg p.o. t.i.d. 6. Nortriptyline HCL 25 mg p.o. daily. 7. Gabapentin 300 mg p.o. t.i.d. 8. Tessalon 100 mg p.o. t.i.d. NEW HOME MEDICATIONS: Include; 1. Azithromycin 250 mg p.o. daily for 4 days. 2. Prednisone 40 mg p.o. q.a.m. with meals for 4 days. 3. Albuterol sulfate, ProAir HFA one puff INH q.4 hours p.r.n. HISTORY OF PRESENT ILLNESS/HOSPITAL COURSE: Kaiden Jensen is a 58-year-old male with past medical history of hyperlipidemia and arthritis who presented to the ED with a 3-week history of worsening dyspnea, cough, and wheezing. The patient states that he has had several years of intermittent dyspnea and cough. He states this is likely due to chronic chemical and mold exposure from working for 30 years. The patient states that PCP, Dr. Rogers gave him antibiotics and steroids 2 weeks ago and that he initially got better, but since finishing the course he has had progressive and worsening symptoms. He endorses orthopnea and dyspnea on exertion. He denied any fevers, chills, nausea, vomiting, abdominal pain. He states that he did have some chest pain when he coughed, but denied any exertional chest pain. States that he had been exposed to chemicals for the last 30 years because of his job, but he has no known lung issues. In the ED, he was given steroids and nebulizing treatment. Vital signs on admission, blood pressure 151/71, heart rate 108, respiratory rate 20, temperature 98.2, pulse ox 96% on room air. Physical exam initially on admission was notable for tachycardia, 3/6 systolic murmur heard best over the left 5th intercostal space, midclavicular line. Expiratory wheezes were heard on lung exam. Labs were white blood cell count 10.4, hemoglobin 14.9, hematocrit 44.1, platelets 203. Sodium 137, potassium 4.1, chloride 107, bicarb 21, BUN 13, creatinine 0.78. Blood sugar was 143. EKG shows sinus tachycardia with possible left atrial enlargement. Chest x-ray showed borderline pulmonary vascular congestion. The patient was admitted for presumed COPD exacerbation versus reactive airway disease. The patient had a BNP initially that was less than 10. We continued steroids and started azithromycin. We also continued DuoNeb. We ordered an echo for his new murmur, that read is still pending. The patient had negative troponins x3 during this hospital stay. The patient clinically improved dramatically over the 1st night of his admission and stated that he was back to his baseline and was no longer having shortness of breath or cough. This was after just receiving one dose of azithromycin, IV steroids, and DuoNeb. The patient was cleared for discharge on 12/16/2018 with echo still pending. We will follow up on echo. DISPOSITION: Stable. The patient should do well if he completes a course of azithromycin and steroids. He is also prescribed rescue inhaler upon discharge. The patient stated that he has an appointment with Pulmonology in the next week for further workup. DISCHARGE INSTRUCTIONS: 1. Location: Home. 2. Diet: Heart healthy. 3. Activity: As tolerated. 4. Followup: Follow up with primary care provider within a week and follow up with field marketer. Job ID: [id number]
== END 2018-12-16 17:08 | disposition home or self-care (01) ==
LOC: ERS 14:56 → 2SW 15:30
PROVIDERS: ADMIT Emergency Medicine; ATTEND Emergency Medicine
DX: J44.1 Chronic obstructive pulmonary disease with (acute) exacerbation (principal); E78.5 Hyperlipidemia, unspecified; M19.90 Unspecified osteoarthritis, unspecified site; I10 Essential (primary) hypertension; R07.9 Chest pain, unspecified; J96.00 Acute respiratory failure, unspecified whether with hypoxia or hypercapnia; R01.1 Cardiac murmur, unspecified; Z79.899 Other long term (current) drug therapy
CPT/HCPCS: 36415; 36416; 80048; 85025; 93005; 93306; 94640; 94760; 96365; 96372; 96375; 96376; G0378; J0456; J1650; J2920; J7050; J7512; J7620

== ENCOUNTER 2018-12-23 08:46 | Outpatient (CLI) | payer OTHER ==
--- NOTE | 2018-12-23 11:30 | MRI ---
MRI BRAIN WITH AND WITHOUT CONTRAST: INDICATION: Vascular headache. FINDINGS: There is no ventriculomegaly, mass effect, or midline shift. There are scattered punctate signal abn ormalities of the cerebral white matter likely related to minimal chronic microvascular ischemic dise ase. No hemorrhagic susceptibility is present, intracranially. There is no acute territorial infarc tion. The visualized skull base flow voids are patent. No pathologic intraaxial enhancement. Scatt ered paranasal sinus mucosal thickening is present. IMPRESSION: 1. No evidence of an acute intracranial abnormality. 2. Minimal chronic ischemic disease. POS: C
== END 2018-12-23 08:47 | disposition home or self-care (01) ==
LOC: SCSMRI 08:46
PROVIDERS: ATTEND Psychiatry & Neurology Neurology
DX: G44.1 Vascular headache, not elsewhere classified (principal); I67.82 Cerebral ischemia
CPT/HCPCS: 70553

== ENCOUNTER 2019-03-17 14:16 | Outpatient (CLI) | payer OTHER ==
--- NOTE | 2019-03-18 09:12 | PFT ---
PATIENT HISTORY: HEIGHT: 64 WEIGHT: 194 SMOKER: NO HOW LON YRS PACKS PER DAY .3 PRODUCTIVE COUGH: LUNG DISEASE: PHYSICIAN INTERPRETATION FINAL REPORT: There very mild reduction Vital Capacity, but Expiratory Flows are with in normal limits. RV is normal. RV/TLC hyper expanded. Gas transfer is lower limit of normal. Airway resistance was increased. IMPRESSION: PFT is consistent with Obstructive ventilatory impairment, with mild Reduction in diffusion capacity. Parcel Post Clerk: [place] Brass Plater: [place] MCDUFFIE
== END 2019-03-17 14:17 | disposition home or self-care (01) ==
LOC: CP 14:16
PROVIDERS: ATTEND Internal Medicine Pulmonary Disease
DX: J44.9 Chronic obstructive pulmonary disease, unspecified (principal); R94.2 Abnormal results of pulmonary function studies
CPT/HCPCS: 94060; 94727; 94729

== ENCOUNTER 2019-07-20 19:30 | Outpatient (CLI) | payer OTHER | END 2019-07-20 19:31 | disposition home or self-care (01) | LOC: SLEEPLAB 19:30 | PROVIDERS: ATTEND Internal Medicine Pulmonary Disease | DX: G47.33 Obstructive sleep apnea (adult) (pediatric) (principal); E66.9 Obesity, unspecified; R53.83 Other fatigue; J44.9 Chronic obstructive pulmonary disease, unspecified; I10 Essential (primary) hypertension | CPT/HCPCS: 95810 ==

== ENCOUNTER 2019-09-06 20:30 | Outpatient (CLI) | payer OTHER | END 2019-09-06 20:31 | disposition home or self-care (01) | LOC: SLEEPLAB 20:30 | PROVIDERS: ATTEND Internal Medicine Pulmonary Disease | DX: G47.33 Obstructive sleep apnea (adult) (pediatric) (principal); R53.83 Other fatigue; E66.9 Obesity, unspecified; J44.9 Chronic obstructive pulmonary disease, unspecified; G47.10 Hypersomnia, unspecified; Z68.29 Body mass index [BMI] 29.0-29.9, adult | CPT/HCPCS: 95811 ==

== ENCOUNTER 2019-12-22 17:24 | Observation (INO) | payer OTHER ==
--- NOTE | 2019-12-22 18:38 | RAD ---
SINGLE VIEW OF THE CHEST: 12/22/19 COMPARISON: 12/22/19 HISTORY: Audible wheezing and shortness of breath. FINDINGS: Single view of the chest shows a normal sized cardiomediastinal silhouette. There is no evidence of c onsolidation, mass, or pleural effusion. The bones are unremarkable. IMPRESSION: No evidence of acute cardiopulmonary disease. POS: EAA
--- NOTE | 2019-12-22 19:16 | PDOC.FPRHP ---
- History of Present Illness Chief Complaint: chest pain History of Present Illness: patient is a 59-year-old male with a past medical history significant for COPD, diabetes mellitus, and hypertension presents to the emergency department as a transfer from [place] for Covid rule out. patient reports that he has been having some mild chest pain with deep breathing for the past three weeks he also reports a cough and feeling chills. patient presented to PCPs office and was treated for bronchitis he reports his cough has improved since this time and now only reports mild dyspnea with walking around he denies any cough he denies fever, chills, nausea, vomiting. he has been quarantining appropriately and denies any sick contacts. hes been taking his medications as prescribed and has had similar symptoms in the past and was treated for COPD exacerbation. He denies dyspnea on exertion, orthopnea, palpitations. He follows with survey superintendent in [place]. has had an echocardiogram recently that does not reveal any reduced ejection fraction ED Course: cbc, cmp - Allergies/Adverse Reactions Allergies Allergy/AdvReac Type Severity Reaction Status Date / Time No Known Drug Allergies Allergy Verified 12/22/19 21:21 - Home Medications Medication Instructions Recorded Confirmed Type Atorvastatin Calcium [Lipitor] 20 mg PO HS 08/06/18 12/22/19 History Naproxen 500 mg PO BID PRN 08/06/18 12/22/19 History Tamsulosin HCl [Flomax] 2 capsule PO HS 08/06/18 12/22/19 History hydrOXYzine HCl [Hydroxyzine HCl] 25 mg PO PRN PRN 08/06/18 12/22/19 History Benzonatate [Tessalon] 100 mg PO TID PRN 12/15/18 12/22/19 History Gabapentin 300 mg PO TID 12/15/18 12/22/19 History Nortriptyline HCl [Pamelor] 25 mg PO DAILY 12/15/18 12/22/19 History Albuterol Sulfate [Proair HFA] 1 puff INH Q4HR PRN #1 inh 12/16/18 12/22/19 Rx Budesonide-Formoterol [Symbicort 1 puff INH BID 12/22/19 12/22/19 History 160-4.5] Metoprolol Tartrate 50 mg PO BID 12/22/19 12/22/19 History Montelukast Sodium [Singulair] 10 mg PO HS 12/22/19 12/22/19 History metFORMIN [Glucophage] 500 mg PO DAILY 12/22/19 12/22/19 History - History PMHx: DMII, COPD, HLD, Arthritis PSHx: none FHx:NC Social:no TAD - Review of Systems General: denies: fever/chills, weight/appetite/sleep changes ENT: denies: nasal congestion, rhinorrhea Respiratory: reports: cough, shortness of breath. denies: congestion Cardiovascular: reports: chest pain. denies: palpitation, edema, paroxysmal nocturnal dyspnea Gastrointestinal: denies: nausea, vomiting, diarrhea Genitourinary: denies: dysuria Skin: denies: rashes, lesions Musculoskeletal: denies: pain, tenderness - Vital signs 147/89, MAP: 108, Pulse: 82, Resp: 24, Temp: 98.5 (Oral), Pain: 0, O2 sat: 95 on (Room Air) - Physical Exam Constitutional: NAD HEENT: grossly normal vision, grossly normal hearing Neck: trachea midline Heart: RRR, normal S1/S2, no murmurs/rubs/gallops, pulses present, no edema Lungs: other (wheezing, poor air movement throughout) Abdomen: soft, non-tender Musculoskeletal: normal structure, normal tone Neurological: no focal deficit, CN II-XII intact Skin: no rash/lesions, good turgor Heme/Lymphatic: no unusual bruising or bleeding Psychiatric: normal mood and affect FMR H&P: Results - Labs Result Diagrams: 12/22/19 18:51 12/22/19 18:51 FMR H&P: A/P - Problem List (1) DMII (diabetes mellitus, type 2) Current Visit: Yes Status: Acute (2) COPD exacerbation Current Visit: No Status: Acute Code(s): J44.1 - CHRONIC OBSTRUCTIVE PULMONARY DISEASE W (ACUTE) EXACERBATION (3) Arthritis Current Visit: No Status: Chronic Code(s): M19.90 - UNSPECIFIED OSTEOARTHRITIS, UNSPECIFIED SITE (4) HLD (hyperlipidemia) Current Visit: No Status: Chronic Code(s): E78.5 - HYPERLIPIDEMIA, UNSPECIFIED Qualifiers: Hyperlipidemia type: unspecified Qualified Code(s): E78.5 - Hyperlipidemia , unspecified (5) HTN (hypertension) Current Visit: No Status: Chronic Code(s): I10 - ESSENTIAL (PRIMARY) HYPERTENSION Qualifiers: Hypertension type: essential hypertension Qualified Code(s): I10 - Essential (primary) hypertension - Plan COPD exacerbation -cxr, CMP, CBC wnl, wheezing on exam - pred, albuterol inhalers - no indication for abx at this time. procal pending COVID ro - dyspnea and cough - pending, isolation precautions atypical chest pain - trend trops, ekg wnl - consider stress after covid result - likely related to chronic cough/dyspnea DMII - continue home meds HLD - continue home meds Arthritis - continue home meds ppx: lovenox code: full pcp: gio dispo: admit to tele obs for further eval/treatment for copd exac FMR H&P: Upper Level - Plan Date/Time: 12/22/19 987 I, [], have evaluated this patient and agree with findings/plan as outlined by internet marketing manager resident. Pertinent changes/additions are listed here. Addendum - Attending - Attending Attestation Date/Time: 12/22/19 5471 I personally evaluated the patient and discussed the management with Dr. Herrera I agree with the History, Examination, Assessment and Plan documented above with any addition or exceptions noted below - 59-year-old male with h/o COPD, diabetes mellitus, and hypertension presents to the emergency department having some mild chest pain with deep breathing for the past three weeks. He also reports a cough and feeling chills. Had been seen in PCPs office and was treated for bronchitis with an antibiotic. He reports his cough has improved since this time and now only reports mild dyspnea with walking around he denies any cough. He denies fever, chills, nausea, vomiting. PMH/PSH/Meds/SH reviewed and agree with resident's documentation. Afebrile BP 131/74 P88 RR14 96% on RA Exam repeated by me and agree with resident's findings. Labs: WBC=9.0, H/H= 14.7/42.7, Lz=298, K=4.2, BUN/Cr=11/0.88, Edvl=608, trop=0.011, <0.010, Lactic acid=1.4, CXR- NAD A/P: 1) COPD exacerbation - place in obs. Continue MDI, steroids. Recently completed abx, will defer further abx for now. COVID-19 swab pending. 2) DM- cotninue home meds; monitor accuchecks. 3) HTN- continue home meds.
[2019-12-22 19:28] LABS: #Eosinphils 0.2 thou/uL (0.0-0.7); #Lymphocytes 2.2 thou/uL (1.20-3.40); #Monocytes 0.8 thou/uL (0.11-0.59); #Neutrophils 5.7 thou/uL (1.40-6.50); %Basophils 0.4 % (0.0-1.0); %Eosinophils 2.3 % (0.0-10.0); %Lymphocytes 24.8 % (21.0-51.0); %Monocytes 8.9 % (0.0-10.0); %Neutrophils 63.7 % (42.0-75.0); Hemoglobin 14.7 g/dL (14.0-18.0); Mean Corpuscular HGB CONC 34.4 g/dL (32.0-36.0); Mean Corpuscular Hemoglobin 30.6 pg (27.0-31.0); Mean Corpuscular Volume 88.9 fL (78.0-98.0); Platelet Count 199 thou/uL (130-400); RBC Distribution Width 12.6 % (11.5-14.5); Red Blood Cell (RBC) Count 4.81 mill/uL (4.70-6.10)
[2019-12-22 19:31] LABS: ALT (SGPT) 41 U/L (8-55); AST (SGOT) 23 U/L (5-34); Albumin 3.9 g/dL (3.5-5.0); Alkaline Phosphatase 101 U/L (40-110); Anion Gap 14 mmol/L (10-20); BUN (Urea Nitrogen) 11 mg/dL (8.4-25.7); Bilirubin, Total 0.3 mg/dL (0.2-1.2); Calc. Creatinine Clearance 0 mL/min (70-130); Calcium 9.4 mg/dL (7.8-10.44); Carbon Dioxide 22 mmol/L (22-29); Chloride 108 mmol/L (98-107); Estimated GFR-MDRD 89; Globulin 2.5 g/dL (2.4-3.5); Glucose 118 mg/dL (70-105); Potassium 4.2 mmol/L (3.5-5.1); Protein, Total 6.4 g/dL (6.0-8.3); Sodium 140 mmol/L (136-145)
[2019-12-22] MEDS ORDERED: Ondansetron PF 4 MG/2 ML Vial IVP PRN (21:06)
[2019-12-22] MEDS ORDERED: Ondansetron ODT 4 MG TAB PO PRN (21:06)
[2019-12-22 21:07] VITALS: BMI 32.8
[2019-12-22] MEDS: Albuterol 200 PUFF (6.7GM INHALER) INH SCH (22:02)
[2019-12-22] MEDS: Acetaminophen 325 MG TAB PO PRN (22:10)
[2019-12-22 22:49] LABS: Troponin I Less than 0.010 ng/mL (< 0.028)
[2019-12-23 01:27] LABS: Troponin I 0.017 ng/mL (< 0.028)
[2019-12-23] MEDS: Albuterol 200 PUFF (6.7GM INHALER) INH SCH ×6 (02:36→23:33)
[2019-12-23] MEDS: Acetaminophen 325 MG TAB PO PRN ×3 (05:58→18:24)
[2019-12-23] MEDS ORDERED: Benzonatate 100 MG CAP PO PRN (06:28)
[2019-12-23] MEDS ORDERED: hydrOXYzine 25 MG TAB PO PRN (06:28)
[2019-12-23] MEDS ORDERED: NAPROXEN 500 MG PO PRN (06:28)
[2019-12-23] MEDS ORDERED: Naproxen 500 MG TAB PO PRN (06:36)
--- NOTE | 2019-12-23 06:55 | PDOC.FM ---
- Subjective Subjective: Pt states his breathing a little better. His chest is still bothering him, worse with deep breaths. He also states when he is up walking around the gets short of breath and has some pain. He reports a negative stress test within the last year with Dr. Ham in [place], [place]. He denies smoking since the age of 26. - Objective MAR Reviewed: Yes Vital Signs & Weight: Vital Signs (12 hours) Temp Pulse Resp BP BP Pulse Ox 12/23/19 04:55 97.1 F L 83 14 139/79 96 12/23/19 00:02 96.7 F L 83 18 140/76 95 12/22/19 21:08 97.9 F 88 20 131/74 96 Weight Weight 92.125 kg I&O: 12/21/19 12/22/19 12/23/19 06:59 06:59 06:59 Intake Total 240 Balance 240 Result Diagrams: 12/22/19 18:51 12/22/19 18:51 Phys Exam - Physical Examination Constitutional: NAD HEENT: moist MMs Some wheezing, possibly radiation from upper airways Cardiovascular: RRR, no significant murmur Gastrointestinal: soft, no distention Musculoskeletal: no edema Neurological: moves all 4 limbs Psychiatric: A&O x 3 Skin: cap refill <2 seconds Dx/Plan (1) DMII (diabetes mellitus, type 2) Status: Acute (2) COPD exacerbation Code(s): J44.1 - CHRONIC OBSTRUCTIVE PULMONARY DISEASE W (ACUTE) EXACERBATION Status: Acute (3) HLD (hyperlipidemia) Code(s): E78.5 - HYPERLIPIDEMIA, UNSPECIFIED Status: Chronic Qualifiers: Hyperlipidemia type: unspecified Qualified Code(s): E78.5 - Hyperlipidemia , unspecified (4) HTN (hypertension) Code(s): I10 - ESSENTIAL (PRIMARY) HYPERTENSION Status: Chronic Qualifiers: Hypertension type: essential hypertension Qualified Code(s): I10 - Essential (primary) hypertension - Plan Plan: This is a 59 yo male with a pmh of HTN, HLD, DM2, COPD COPD exacerbation -CXR wnl -Procal negative -Continue albuterol inhaler, steroids, home steroid inhaler COVID-19 r/o -Pending labs, precautions in place Atypical chest pain -Troponin, ekg wnl -Pending outside records of negative stress test in the last year DM2 -Continue home metformin -Will add diabetic orders if CMP shows worsening glucose HLD -Continue home atorvastatin HTN -Continue home metoprolol and losartan-HCTZ Arthritis -Continue home naproxen Addendum - Attending - Attending Attestation Date/Time: 12/23/19 1987 I personally evaluated the patient and discussed the management with Dr. Godwin. I agree with the History, Examination, Assessment and Plan documented above with any addition or exceptions noted below.
[2019-12-23] MEDS ORDERED: Ipratropium Oral Inhaler INH SCH (07:00)
[2019-12-23] MEDS ORDERED: Nortriptyline HCl 25 MG CAP PO SCH (09:00)
[2019-12-23] MEDS ORDERED: Non-Formulary Item 1 EACH (Budesonide-Formoterol [Symbicort 160-4.5] 1 PUFF) INH SCH (09:00)
[2019-12-23] MEDS: Enoxaparin Sodium 40 MG/0.4 ML SYRINGE SC SCH (09:47)
[2019-12-23] MEDS: predniSONE 20 MG TAB PO SCH (09:48)
[2019-12-23] MEDS: Gabapentin 300 MG CAP PO SCH ×3 (09:48→20:11)
[2019-12-23] MEDS: metFORMIN 500 MG TAB PO SCH (09:48)
[2019-12-23] MEDS: Metoprolol Tartrate 50 MG TAB PO SCH ×2 (09:48→20:11)
--- NOTE | 2019-12-23 15:19 | EKG ---
Test Reason : SOB Blood Pressure : / mmHG Vent. Rate : 087 BPM Atrial Rate : 087 BPM P-R Int : 164 ms QRS Dur : 092 ms QT Int : 360 ms P-R-T Axes : 043 023 048 degrees QTc Int : 433 ms Normal sinus rhythm RSR' or QR pattern in V1 suggests right ventricular conduction delay Nonspecific ST and T wave abnormality Abnormal ECG Confirmed by LASHON LAWRENCE ([id number]), acquisition editor USHA LOVE ([id number]) on 12/23/2019 3:19:01 PM Referred By: JEAN-PAUL Confirmed By:LASHON Avila
[2019-12-23] MEDS ORDERED: Lactated Ringer's 500 ML IV SCH (17:30)
[2019-12-23] MEDS ORDERED: Metoclopramide HCl 10 MG/2 ML VIAL IVP SCH (17:30)
[2019-12-23] MEDS: Mometasone 200 MCG/Formoterol 5 MCG 120 PUFF INHALER INH SCH (19:06)
[2019-12-23] MEDS ORDERED: Montelukast Sodium 10 mg Tablet PO SCH (21:00)
[2019-12-23] MEDS ORDERED: Tamsulosin HCl 0.4 MG CAP PO SCH ×2 (21:00)
[2019-12-23] MEDS ORDERED: Atorvastatin Calcium 20 MG TAB PO SCH (21:00)
[2019-12-24] MEDS: Albuterol 200 PUFF (6.7GM INHALER) INH SCH ×4 (03:24→14:37)
--- NOTE | 2019-12-24 06:44 | PDOC.FM ---
- Subjective Subjective: Pt states that his breathing and chest pain are improved. He does report some fatigue when he is up moving around. He states his headache is improved but his nasal congestion is bothering him. He feels ready to go home. - Objective MAR Reviewed: Yes Vital Signs & Weight: Vital Signs (12 hours) Temp Pulse Resp BP Pulse Ox 12/24/19 05:38 95.7 F L 84 20 157/79 H 98 12/23/19 19:50 96.8 F L 103 H 18 140/70 95 Weight Admit Weight 92.125 kg Weight 90.038 kg I&O: 12/22/19 12/23/19 12/24/19 06:59 06:59 06:59 Intake Total 240 240 Balance 240 240 Result Diagrams: 12/22/19 18:51 12/22/19 18:51 Phys Exam - Physical Examination Constitutional: NAD HEENT: moist MMs Neck: no JVD Respiratory: no wheezing, clear to auscultation bilateral Cardiovascular: RRR, no significant murmur Gastrointestinal: soft, non-tender, no distention, positive bowel sounds Musculoskeletal: no edema, pulses present Neurological: moves all 4 limbs Psychiatric: A&O x 3 Skin: cap refill <2 seconds Dx/Plan (1) DMII (diabetes mellitus, type 2) Status: Acute (2) COPD exacerbation Code(s): J44.1 - CHRONIC OBSTRUCTIVE PULMONARY DISEASE W (ACUTE) EXACERBATION Status: Acute (3) HLD (hyperlipidemia) Code(s): E78.5 - HYPERLIPIDEMIA, UNSPECIFIED Status: Chronic Qualifiers: Hyperlipidemia type: unspecified Qualified Code(s): E78.5 - Hyperlipidemia , unspecified (4) HTN (hypertension) Code(s): I10 - ESSENTIAL (PRIMARY) HYPERTENSION Status: Chronic Qualifiers: Hypertension type: essential hypertension Qualified Code(s): I10 - Essential (primary) hypertension - Plan Plan: This is a 59 yo male with a pmh of HTN, HLD, DM2, COPD COPD exacerbation -CXR wnl -Procal negative -Continue albuterol inhaler, steroids, home steroid inhaler -Plan to discharge home this afternoon. We discussed COVID PUI as well as COVID confirmed precautions and he understands we will call him with results if they do not result today. COVID-19 r/o -Pending labs, precautions in place Atypical chest pain -Troponin neg x3, ekg wnl -Negative stress test from 01/2019 in [place], [place] DM2 -Continue home metformin -Will add diabetic orders if CMP shows worsening glucose HLD -Continue home atorvastatin HTN -Continue home metoprolol and losartan-HCTZ Arthritis -Continue home naproxen Addendum - Attending - Attending Attestation Date/Time: 12/24/19 [id number] I personally evaluated the patient and discussed the management with Dr. Godwin. I agree with the History, Examination, Assessment and Plan documented above with any addition or exceptions noted below. d/c home today. COVID still pending. Told him he must go home and self quarantine until COVID swab results.
[2019-12-24] MEDS: Mometasone 200 MCG/Formoterol 5 MCG 120 PUFF INHALER INH SCH (07:47)
[2019-12-24] MEDS ORDERED: Nortriptyline HCl 25 MG CAP PO SCH (09:00)
[2019-12-24] MEDS: predniSONE 20 MG TAB PO SCH (09:11)
[2019-12-24] MEDS: Metoprolol Tartrate 50 MG TAB PO SCH (09:11)
[2019-12-24] MEDS: Gabapentin 300 MG CAP PO SCH (09:11)
[2019-12-24] MEDS: Enoxaparin Sodium 40 MG/0.4 ML SYRINGE SC SCH (09:11)
[2019-12-24] MEDS: metFORMIN 500 MG TAB PO SCH (09:11)
[2019-12-24 12:16] VITALS: BP 147/73; TEMP 96.5
[2019-12-24] MEDS ORDERED: Loratadine 10 MG TAB PO SCH (12:30)
[2019-12-25] MEDS ORDERED: Loratadine 10 MG TAB PO SCH (09:00)
--- NOTE | 2019-12-26 09:54 | DIS ---
DATE OF ADMISSION: 12/22/2019 DATE OF DISCHARGE: 12/24/2019 ADMITTING ATTENDING: Mary Zepeda MD DISCHARGE ATTENDING: Dr. Raúl Anand. RESIDENT: Jose Godwin DO CONSULTS: None. PROCEDURES: Chest x-ray showing no evidence of acute cardiopulmonary disease. DISCHARGE MEDICATIONS: 1. Prednisone 40 mg p.o. daily for 6 days. 2. Atorvastatin 20 mg p.o. at bedtime. 3. Tessalon 100 mg p.o. t.i.d. 4. Symbicort 1 puff b.i.d. 5. Gabapentin 300 mg p.o. t.i.d. 6. Hydroxyzine 25 mg p.o. p.r.n. itching. 7. Metformin 500 mg daily. 8. Metoprolol tartrate 50 mg p.o. b.i.d. 9. Singulair 10 mg p.o. at bedtime. 10. Naproxen 500 mg p.o. b.i.d. 11. Amitriptyline 25 mg p.o. daily. 12. Tamsulosin 0.4 mg two capsules p.o. at bedtime. 13. Albuterol inhaler 1 puff q.4 hours p.r.n. shortness of breath or wheezing. DISCONTINUED MEDICATIONS: None. BRIEF HISTORY OF PRESENT ILLNESS/HOSPITAL COURSE: This is a 59-year-old male with past medical history of COPD, diabetes type 2, and hypertension, who presented to the emergency department with transfer from [place] for COVID rule-out. The patient has had some mild chest pain with deep breathing for the past 3 weeks. Reports cough, feeling chills. The patient presents to the PCP's office and treated for bronchitis, reports that his cough is improved and only reports mild dyspnea. He has been quarantined. Denies any sick contacts. He had similar symptoms in the past associated with COPD exacerbation. The patient was admitted for COVID rule-out as well as COPD exacerbation, started on steroids. Procalcitonin was negative, and no antibiotics were started. The patient was also swabbed for COVID which at this time is still pending. The patient was back to baseline at the time of discharge. O2 saturation is 98% on room air. The patient is to continue steroids and continue self-quarantine until his COVID test comes back. However, this can be done at home. The patient also had a headache while he was here and received fluids and Reglan, which resolved his headache. 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 Again, I believe that this steroid course will help improve that. He is to continue using his Symbicort and albuterol inhalers as instructed and again self-quarantine. We discussed self-quarantine until the COVID test comes back as well as if it comes back positive what the instructions are going forward. He was notified he will be called with those results. DISPOSITION: Stable. DISCHARGE INSTRUCTIONS: 1. Location: Home. 2. Diet: Heart healthy and diabetic. 3. Activity: As tolerated. 4. Follow up with Dr. Rogers, PCP, in 1 to 2 weeks. Job ID: [id number]
== END 2019-12-24 15:05 | disposition home or self-care (01) ==
LOC: ERS 17:24 → 2SW 19:45
PROVIDERS: ADMIT Family Medicine; ATTEND Family Medicine
DX: J44.1 Chronic obstructive pulmonary disease with (acute) exacerbation (principal); R06.00 Dyspnea, unspecified; R05 Cough; R07.89 Other chest pain; E11.9 Type 2 diabetes mellitus without complications; E78.5 Hyperlipidemia, unspecified; I10 Essential (primary) hypertension; M19.90 Unspecified osteoarthritis, unspecified site; Z87.891 Personal history of nicotine dependence; Z79.51 Long term (current) use of inhaled steroids; Z79.84 Long term (current) use of oral hypoglycemic drugs; Z79.899 Other long term (current) drug therapy; Z20.828 Contact with and (suspected) exposure to other viral communicable diseases
CPT/HCPCS: 36415; 36416; 71045; 83605; 84145; 84484; 93005; 96361; 96374; 96375; G0378; J1650; J2765; J7512

== ENCOUNTER 2020-10-25 09:24 | Outpatient (CLI) | payer OTHER ==
--- NOTE | 2020-10-25 10:08 | RAD ---
Cervical spine 6 views: 10/25/2020 COMPARISON: 04/17/2020 HISTORY: Spondylosis FINDINGS: Open-mouth odontoid view and Fuchs view demonstrate a normal C1-2 articulation and dens res pectively. The neutral lateral exam demonstrates disc space narrowing with anterior osteophyte formation at C4-5 , C5-6, and C6-7. The neutral lateral exam demonstrates no anterolisthesis or retrolisthesis and no prevertebral soft tissue swelling. On flexion, minimal anterolisthesis measuring less than 3 mm prese nt at C3-4 and C4-5. No anterolisthesis or retrolisthesis on extension imaging. Mid cervical spine facet and uncovertebral osteophyte formation noted bilaterally most prominent at the C5-6 level. IMPRESSION: Cervical spine degenerative change. If there are radicular symptoms, MRI suggested.
--- NOTE | 2020-10-25 10:09 | RAD ---
RADIOGRAPH LUMBAR SPINE 4 VIEWS: DATE: 10/25/2020 HISTORY: 60-year-old male with low back pain and bilateral lumbar radiculopathy COMPARISON: 04/17/2020 TECHNIQUE: All standing, weightbearing views. AP view. 3 lateral views in neutral, flexion, and extension. FINDINGS: 5 standard lumbar type vertebrae. No scoliosis, significant spondylolisthesis, or instability between flexion and extension. Straightening of the normal lordosis. Vertebral body heights are maintained. Mild to moderate disc space narrowing at L4-5 with mild endplate osteophytosis. Rest of the disc spaces are maintained. Mild endplate osteophytosis at L2-3 and T12-L1, without high-grade disc space narrowing. Larger, flowing left sided bridging osteophytes throughout lower thoracic spine suggestive of DISH. No interval change. IMPRESSION: 1) no instability. 2) loss of lordosis suggestive of muscle spasm. 3) low-grade degenerative disc disease, most notably at L4-5. 4) findings at lower thoracic spine suggestive of DISH (diffuse idiopathic skeletal hyperostosis). 5) no interval change
== END 2020-10-25 09:25 | disposition home or self-care (01) ==
LOC: BICRAD 09:24
PROVIDERS: ATTEND Nurse Practitioner Family
DX: M47.812 Spondylosis without myelopathy or radiculopathy, cervical region (principal); M54.5 Low back pain; M51.36 Other intervertebral disc degeneration, lumbar region
CPT/HCPCS: 72050; 72110

== ENCOUNTER 2021-05-24 13:46 | Outpatient (CLI) | payer OTHER | END 2021-05-24 13:47 | disposition home or self-care (01) | LOC: TBSIIMAG 13:46 | PROVIDERS: ATTEND Nurse Practitioner Family | DX: M47.22 Other spondylosis with radiculopathy, cervical region (principal); M48.02 Spinal stenosis, cervical region; M47.813 Spondylosis without myelopathy or radiculopathy, cervicothoracic region | CPT/HCPCS: 72141 ==

== ENCOUNTER 2021-10-08 10:23 | Outpatient (CLI) | payer OTHER ==
[2021-10-08 11:39] LABS: Bilirubin Neg (Negative); Blood, Urine Negative (Negative); Clarity Clear (Clear); Glucose, Urine (Dipstick) Normal (Negative); Ketone, Urine Negative (Negative); Leukocyte Negative (Negative); Nitrite Negative (Negative); Protein, Urine (Dipstick) Negative (Neg-Trace); Urobilinogen Normal mg/dL (Less than 2)
[2021-10-08 11:45] LABS: Hemoglobin 14.7 g/dL (13.5-17.5); Mean Corpuscular HGB CONC 32.8 g/dL (32.0-36.0); Mean Corpuscular Hemoglobin 28.9 pg (27.0-33.0); Mean Platelet Volume 11.8 fl (7.4-10.4); Platelet Count 229 10x3/uL (150-450); RBC Distribution Width 13.4 % (11.5-14.5); Red Blood Cell (RBC) Count 5.09 10x6/uL (4.32-5.72); White Blood Cell (WBC) Count 6.8 10x3/uL (3.5-10.5)
[2021-10-08 11:59] LABS: Bacteria/HPF None Seen HPF (None Seen); RBC/HPF None Seen HPF (0-3); Squamous Epithelial None Seen HPF (0-3); WBC/HPF None Seen HPF (0-3)
[2021-10-08 12:05] LABS: INR-International Normal Ratio 0.9; PTT 27.1 sec (22.0-33.0); Prothrombin Time 10.5 sec (9.5-12.1)
[2021-10-08 12:14] LABS: Anion Gap 13 mmol/L (10-20); BUN (Urea Nitrogen) 15 mg/dL (8.4-25.7); Calc. Creatinine Clearance 0 mL/min (70-130); Carbon Dioxide 27 mmol/L (22-29); Chloride 104 mmol/L (98-107); Glucose 130 mg/dL (70-105); Potassium 3.9 mmol/L (3.5-5.1); Sodium 140 mmol/L (136-145)
[2021-10-08 23:08] LABS: SARS-CoV-2 PCR by NAA Not Detected (NotDetected)
== END 2021-10-08 10:24 | disposition home or self-care (01) ==
LOC: LABBT 10:23
PROVIDERS: ATTEND Urology
DX: Z01.818 Encounter for other preprocedural examination (principal); N40.1 Benign prostatic hyperplasia with lower urinary tract symptoms; R35.0 Frequency of micturition; R35.1 Nocturia; N52.01 Erectile dysfunction due to arterial insufficiency; R10.2 Pelvic and perineal pain; E66.9 Obesity, unspecified; E11.69 Type 2 diabetes mellitus with other specified complication; Z20.822 Contact with and (suspected) exposure to COVID-19
CPT/HCPCS: 80048; 81001; 85027; 85610; 85730; 87086; 93005; 93010; U0003; U0005

== ENCOUNTER 2021-10-11 05:55 | Day surgery (SDC) | payer MEDICARE, OTHER ==
[2021-10-02 13:47] VITALS: BMI 31.1
[2021-10-11] MEDS ORDERED: Midazolam HCl 2 mg/2 ml Vial ONE (06:58)
[2021-10-11] MEDS ORDERED: B & O ONE (07:16)
[2021-10-11] MEDS ORDERED: Famotidine/PF 20 mg/2ml Vial ONE (07:25)
[2021-10-11] MEDS ORDERED: Levofloxacin 500 mg/D5W 100 ml Premix Bag ONE (07:25)
[2021-10-11] MEDS ORDERED: Fentanyl 100 MCG/2 ML VIAL ONE (07:28)
[2021-10-11] MEDS ORDERED: Ondansetron PF 4 MG/2 ML Vial ONE (07:44)
[2021-10-11] MEDS ORDERED: Dexamethasone 20 MG/5 ML VIAL ONE (07:44)
[2021-10-11] MEDS ORDERED: Hyoscyamine Sulfate SL 0.125 mg Tablet ONE ×2 (08:49→08:50)
[2021-10-11] MEDS ORDERED: Phenazopyridine HCl 100 MG TAB ONE (09:38)
[2021-10-11] MEDS ORDERED: HYDROcodone/Acetaminophen 5/325 mg Tablet ONE (10:24)
== END 2021-10-11 13:15 | disposition home or self-care (01) ==
LOC: SDC 05:55
PROVIDERS: ATTEND Urology
PROC: 0T7D8DZ Dilation of Urethra with Intraluminal Device, Via Natural or Artificial Opening Endoscopic (ICD-10-PCS; principal; 2021-10-11)
DX: N40.1 Benign prostatic hyperplasia with lower urinary tract symptoms (principal); N13.8 Other obstructive and reflux uropathy; R35.0 Frequency of micturition; R35.1 Nocturia; R39.11 Hesitancy of micturition; R39.12 Poor urinary stream; N52.01 Erectile dysfunction due to arterial insufficiency; E11.9 Type 2 diabetes mellitus without complications; E66.9 Obesity, unspecified; Z68.31 Body mass index [BMI] 31.0-31.9, adult; Z87.891 Personal history of nicotine dependence; Z79.84 Long term (current) use of oral hypoglycemic drugs; Z79.899 Other long term (current) drug therapy
CPT/HCPCS: J1100; J1956; J2250; J2405; J3010; L8699; S0028

== ENCOUNTER 2023-06-05 14:42 | Outpatient (CLI) | payer MEDICARE | END 2023-06-05 14:43 | disposition home or self-care (01) | LOC: SCSMRI 14:42 | PROVIDERS: ATTEND Nurse Practitioner Family | DX: M47.22 Other spondylosis with radiculopathy, cervical region (principal); M50.11 Cervical disc disorder with radiculopathy, high cervical region; M50.121 Cervical disc disorder at C4-C5 level with radiculopathy; M50.123 Cervical disc disorder at C6-C7 level with radiculopathy | CPT/HCPCS: 72141 ==